=== PATIENT | female | born 1970 | race American Indian/Alaskan Native ===

== ENCOUNTER 2016-10-27 04:19 | Emergency (ER) | payer SELFPAY ==
[2016-10-27] MEDS ORDERED: TYLENOL PO ONE (04:36)
--- NOTE | 2016-10-27 04:46 | Emergency Department Report ---
<ESTHELA ANTONIO ICamryn - Last Filed: 10/27/16 05:29> ED Abdominal Pain HPI - General Chief Complaint: Abdominal Pain Stated Complaint: ABD PAIN/CRAMPING W/BLEEDING Time Seen by Provider: 10/27/16 04:44 Source: patient Mode of arrival: Ambulatory Limitations: No Limitations - History of Present Illness Initial Comments: Pt is a 46 yr old female with no PMHx who presents with abdominal pain. Pt reports she is on day #2 of her menstrual cycle with severed abdominal cramping. Pain is suprapubic, constant, and crampy, associated nausea and vomiting x 2 episodes today. Pt states she does have heavy crampy periods, but this is worse than her usual. Pt also states she went through 13 tampons yesterday. Aleve and ASA without relief, last dose of asa was 2 hrs [employer]. Otherwise no other complaints, no history of abd surgeries MD Complaint: abdominal pain Severity scale (0 -10): 10 - Related Data Home Medications Medication Instructions Recorded Confirmed Last Taken Amoxicillin [Trimox CAP] 500 mg PO Q8H 03/11/16 03/11/16 Unknown Hydrochlorothiazide [HCTZ] 25 mg PO QDAY 03/11/16 03/11/16 Unknown Ibuprofen [Advil 100 MG tab] 200 mg PO Q6H PRN 03/11/16 03/11/16 Unknown Previous Rx's Medication Instructions Recorded Last Taken Type Nitrofurantoin [place]/M-Cryst 100 mg PO Q12HR #14 capsule 10/27/16 Unknown Rx [Macrobid CAP] traMADol [Ultram] 50 mg PO Q4HR PRN #14 tablet 10/27/16 Unknown Rx Allergies Allergy/AdvReac Type Severity Reaction Status Date / Time No Known Allergies Allergy Verified 03/21/15 12:52 ED Review of Systems ROS: Stated complaint: ABD PAIN/CRAMPING W/BLEEDING Other details as noted in HPI Comment: All other systems reviewed and negative ED Past Medical Hx - Past Medical History Previous Medical History?: Yes Hx Hypertension: Yes 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 TL and reversal. - Social History Smoking Status: Current Every Day Smoker Substance Use Type: Alcohol, Marijuana - Medications Home Medications: Home Medications Medication Instructions Recorded Confirmed Last Taken Type Amoxicillin [Trimox CAP] 500 mg PO Q8H 03/11/16 03/11/16 Unknown History Hydrochlorothiazide [HCTZ] 25 mg PO QDAY 03/11/16 03/11/16 Unknown History Ibuprofen [Advil 100 MG tab] 200 mg PO Q6H PRN 03/11/16 03/11/16 Unknown History Nitrofurantoin [place]/M-Cryst 100 mg PO Q12HR #14 capsule 10/27/16 Unknown Rx [Macrobid CAP] traMADol [Ultram] 50 mg PO Q4HR PRN #14 tablet 10/27/16 Unknown Rx ED Physical Exam - General Limitations: No Limitations General appearance: alert, in distress - Head Head exam: Present: atraumatic, normocephalic - Eye Eye exam: Present: normal appearance - ENT ENT exam: Present: mucous membranes moist - Neck Neck exam: Present: normal inspection - Respiratory Respiratory exam: Present: normal lung sounds bilaterally. Absent: respiratory distress - Cardiovascular Cardiovascular Exam: Present: regular rate, normal rhythm. Absent: systolic murmur, diastolic murmur, rubs, gallop - GI/Abdominal GI/Abdominal exam: Present: soft, tenderness (suprapubic), normal bowel sounds. Absent: distended, guarding, rebound, rigid, hyperactive bowel sounds, pulsatile mass, hernia - Rectal Rectal exam: Present: deferred - External exam: Present: normal external exam Speculum exam: Present: normal speculum exam, vaginal bleeding, other (blood pooling, no arterial bleeding) Bi-manual exam: Present: normal bi-manual exam, uterine tenderness. Absent: cervical motion tendernes - Extremities Exam Extremities exam: Present: normal inspection - Back Exam Back exam: Present: normal inspection - Neurological Exam Neurological exam: Present: alert, oriented X3 - Psychiatric Psychiatric exam: Present: normal affect, normal mood - Skin Skin exam: Present: warm, dry, intact, normal color. Absent: rash ED Course Vital Signs 10/27/16 10/27/16 10/27/16 04:29 04:59 06:39 Temperature 98.2 F Pulse Rate 65 71 Respiratory 20 24 15 Rate Blood Pressure 164/118 Blood Pressure 147/94 [Right] O2 Sat by Pulse 100 99 Oximetry 10/27/16 07:00 Temperature Pulse Rate Respiratory 15 Rate Blood Pressure Blood Pressure [Right] O2 Sat by Pulse Oximetry ED Medical Decision Making - Lab Data Result diagrams: 10/27/16 04:36 Critical care attestation.: If time is entered above; I have spent that time in minutes in the direct care of this critically ill patient, excluding procedure time. ED Disposition Clinical Impression: Dysfunctional uterine bleeding Abdominal pain Qualifiers: Abdominal location: lower abdomen, unspecified Qualified Code(s): R10.30 - Lower abdominal pain, unspecified Acute cystitis Qualifiers: Hematuria presence: with hematuria Qualified Code(s): N30.01 - Acute cystitis with hematuria Uterine fibroid Qualifiers: Uterine leiomyoma location: unspecified location Qualified Code(s): D25.9 - Leiomyoma of uterus, unspecified Disposition: DISCHARGED TO HOME OR SELFCARE Condition: Stable Instructions: Dysfunctional Uterine Bleeding (ED), Abdominal Pain (ED), Urinary Tract Infection in Women (ED) Additional Instructions: A urine culture is pending and will take 2-3 days to verify that the antibiotic that I given you for your bladder infection is working. Follow-up with Dr. Lambert on this. Return any acute change or problem particularly if there is excessive bleeding, fever, chills or any acute change. Prescriptions: Nitrofurantoin [place]/M-Cryst [Macrobid CAP] 100 mg PO Q12HR #14 capsule traMADol [Ultram] 50 mg PO Q4HR PRN #14 tablet PRN Reason: Pain Referrals: PRIMARY CAREMD [Primary Care Provider] - 3-5 Days LUDIN LAMBERT MD [Staff Physician] - 3-5 Days <LOUISE DUPREE M - Last Filed: 10/27/16 07:17> ED Course - Reevaluation(s) Reevaluation #1: Seen and examined. No active bleeding. Denied any dysuria. Minimal suprapubic discomfort. She was given a copy of her ultrasound report. She has previously seen Dr. Lambert (SPORTS EDITOR) but not for some time. She is encouraged to follow-up on a urine culture. She was advised of her UTI and will be given a prescription of an antibiotic and something for pain. She is discharged in stable condition. 10/27/16 07:13 ED Medical Decision Making - Lab Data Result diagrams: 10/27/16 04:36 10/27/16 04:36 Laboratory Results - last 24 hr 10/27/16 10/27/16 10/27/16 04:36 04:36 04:52 WBC 6.4 RBC 4.43 Hgb 13.1 Hct 39.5 MCV 89 MCH 30 MCHC 33 RDW 15.9 H Plt Count 187 Lymph % (Auto) 28.4 [place] % (Auto) 7.3 Eos % (Auto) 2.0 Baso % (Auto) Case Hardener Lymph # 1.8 [place] # 0.5 Eos # 0.1 Baso # 0.0 Seg Neutrophils % 61.9 Seg Neutrophils # 4.0 Sodium 140 Potassium 3.4 L Chloride 98.2 Carbon Dioxide 27 Anion Gap 18 BUN 7 Creatinine 0.6 L Estimated GFR > 60 BUN/Creatinine Ratio 11.66 Glucose 136 H Calcium 8.9 Total Bilirubin 0.2 AST 20 ALT 22 Alkaline Phosphatase 68 Total Protein 7.7 Albumin 4.3 Albumin/Globulin Ratio 1.3 Lipase 32 Urine Color Osiris Urine Turbidity Turbid Urine pH 6.0 Ur Specific Darby 1.015 Urine Protein 100 mg/dl Urine Glucose (UA) 50 Urine Ketones Neg Urine Blood Lg Urine Nitrite Neg Urine Bilirubin Neg Urine Urobilinogen < 2.0 Ur Leukocyte Esterase Neg Urine WBC (Auto) > 182.0 H Urine RBC (Auto) > 182.0 Urine HCG, Qual Negative ED Disposition Is pt being admited?: No Does the pt Need Aspirin: No Time of Disposition: 07:15
[2016-10-27] MEDS ORDERED: TORADOL IM ONE (04:58)
[2016-10-27 05:10] LABS: Alanine Aminotransferase 22 units/L (7-56); Albumin 4.3 g/dL (3.9-5); Albumin/Globulin Ratio 1.3 %; Alkaline Phosphatase 68 units/L (35-129); Anion Gap 18 mmol/L; BUN/Creatinine Ratio 11.66; Bilirubin,Total 0.2 mg/dL (0.1-1.2); Blood Urea Nitrogen 7 mg/dL (7-17); Calcium 8.9 mg/dL (8.4-10.2); Carbon Dioxide 27 mmol/L (22-30); Chloride 98.2 mmol/L (98-107); Glucose 136 mg/dL (65-100); Lipase 32 units/L (13-60); Potassium 3.4 mmol/L (3.6-5.0); Sodium 140 mmol/L (137-145); Total Protein 7.7 g/dL (6.3-8.2)
[2016-10-27] MEDS ORDERED: NACL 0.9% 1000 ML 1,000 ML IV ONE (05:18)
[2016-10-27] MEDS ORDERED: MORPHINE IV ONE (05:18)
[2016-10-27 05:36] LABS: Bilirubin,Urine NEG (Negative); Blood,Urine LG (Negative); Ketones,Urine NEG (Negative); Leukocyte Esterase,Urine NEG (Negative); Nitrite,Urine NEG (Negative); Urobilinogen,Urine < 2.0 mg/dL (<2.0)
[2016-10-27 05:39] LABS: Hematocrit 39.5 % (30.3-42.9); Hemoglobin 13.1 gm/dl (10.1-14.3); Mean Corpuscular HGB Conc 33 % (30-34); Mean Corpuscular Hemoglobin 30 pg (28-32); Mean Corpuscular Volume 89 fl (79-97); Platelet Count 187 K/mm3 (140-440); Red Blood Count 4.43 M/mm3 (3.65-5.03); Red Cell Distribution Width 15.9 % (13.2-15.2); White Blood Count 6.4 K/mm3 (4.5-11.0)
[2016-10-27 05:41] LABS: RBC,Urine > 182.0 /HPF (0.0-6.0); WBC,Urine > 182.0 /HPF (0.0-6.0)
--- NOTE | 2016-10-27 06:43 | Ultrasound Report ---
FINAL REPORT PROCEDURE: US TRANSVAGINAL TECHNIQUE: Real-time transabdominal sonography in multiple planes of the pelvis was performed. The pelvic structures, especially the ovaries were not optimally visualized. Transvaginal sonography was then performed to better evaluate the structures and/or abnormalities described below with image documentation. CPT 61645 and 47698 HISTORY: DUB COMPARISON: No prior studies are available for comparison. FINDINGS: UTERUS Size: 13.2 x 6.3 x 7.3 cm. Endometrial thickness: 16 mm. Orientation: anteverted. Cervix: Normal. Fibroids/masses: There are 2 fibroids within the uterine myometrium. One measures 3.5 centimeters. 2nd fibroid measures 3.3 centimeters. RIGHT Ovary: 4.6 x 3.6 x 4.3 cm. Appearance: There is a dominant cyst on the right ovary this measures 3.4 centimeters. LEFT Ovary: 5.8 x 3.7 x 4 cm. Appearance: There are 2 cysts on the left ovary 1 measures 2.3 centimeters. 2nd cyst measures 2.8 centimeters.. Pelvic fluid: None. Other: None. IMPRESSION: The uterus is enlarged and contains at least 2 fibroids 1 measuring up to 3.5 centimeters. There are cysts identified in both ovaries as discussed above.
--- NOTE | 2016-10-27 06:44 | Ultrasound Report ---
FINAL REPORT PROCEDURE: US transabdominal and TRANSVAGINAL pelvic TECHNIQUE: Real-time transabdominal sonography in multiple planes of the pelvis was performed. The pelvic structures, especially the ovaries were not optimally visualized. Transvaginal sonography was then performed to better evaluate the structures and/or abnormalities described below with image documentation. CPT 01747 and [id number] HISTORY: DUB COMPARISON: No prior studies are available for comparison. FINDINGS: UTERUS Size: 13.2 x 6.3 x 7.3 cm. Endometrial thickness: 16 mm. Orientation: anteverted. Cervix: Normal. Fibroids/masses: There are 2 fibroids within the uterine myometrium. One measures 3.5 centimeters. 2nd fibroid measures 3.3 centimeters. RIGHT Ovary: 4.6 x 3.6 x 4.3 cm. Appearance: There is a dominant cyst on the right ovary this measures 3.4 centimeters. LEFT Ovary: 5.8 x 3.7 x 4 cm. Appearance: There are 2 cysts on the left ovary 1 measures 2.3 centimeters. 2nd cyst measures 2.8 centimeters.. Pelvic fluid: None. Other: None. IMPRESSION: The uterus is enlarged and contains at least 2 fibroids 1 measuring up to 3.5 centimeters. There are cysts identified in both ovaries as discussed above.
[2016-10-27 07:11] VITALS: BP 125/86
== END 2016-10-27 07:38 | disposition home or self-care (01) ==
LOC: ED 04:19
DX: N30.01 Acute cystitis with hematuria (principal); D25.9 Leiomyoma of uterus, unspecified; R10.30 Lower abdominal pain, unspecified; N93.8 Other specified abnormal uterine and vaginal bleeding; I10 Essential (primary) hypertension; L93.0 Discoid lupus erythematosus; F17.200 Nicotine dependence, unspecified, uncomplicated; F12.90 Cannabis use, unspecified, uncomplicated
CPT/HCPCS: 36415; 76830; 76856; 80053; 81001; 81025; 83690; 85025; 87086; 96361; 96372; 96374; 99284; J1885; J2270; J7030